=== PATIENT | male | born 1975 | race Caucasian/White ===

== ENCOUNTER → 2020-10-20 | Outpatient (CLI) | payer BC ==
[~2020-10-20] MED LIST: CELEBREX200 MG PO; CRESTOR5 MG PO; GLUCOPHAGE500 MG PO; IBUPROFEN800 MG PO; LISINOPRIL2.5 MG PO; TAMIFLU75 MG PO; TRULICITY1.5 MG/0.5 SQ; XIGDUO XR 10 M1 EACH PO; ZYVOX 600 MG T600 MG PO
== END ==
LOC: US 10:22
DX: N64.4 Mastodynia (principal)
CPT/HCPCS: 76641-RT; 77066

== ENCOUNTER → 2020-11-03 | Day surgery (SDC) | payer BC | END | disposition home or self-care (01) | LOC: OR 06:02 | PROVIDERS: Surgery | PROC: 0WUF0JZ Supplement Abdominal Wall with Synthetic Substitute, Open Approach (ICD-10-PCS; principal; 2020-11-03 07:30) | DX: K42.0 Umbilical hernia with obstruction, without gangrene (principal); K76.0 Fatty (change of) liver, not elsewhere classified; I10 Essential (primary) hypertension; E11.9 Type 2 diabetes mellitus without complications; E78.5 Hyperlipidemia, unspecified; M89.49 Other hypertrophic osteoarthropathy, multiple sites; E55.9 Vitamin D deficiency, unspecified; E53.8 Deficiency of other specified B group vitamins; E66.01 Morbid (severe) obesity due to excess calories; Z68.42 Body mass index [BMI] 45.0-49.9, adult; Z20.822 Contact with and (suspected) exposure to COVID-19; Z79.1 Long term (current) use of non-steroidal anti-inflammatories (NSAID); Z79.51 Long term (current) use of inhaled steroids; Z79.4 Long term (current) use of insulin; Z79.899 Other long term (current) drug therapy | CPT/HCPCS: 82962; C1781; J0690; J1100; J1170; J1885; J2001; J2250; J2405; J2704; J2710; J3010; J7120 ==

== ENCOUNTER 2021-08-10 11:37 | Emergency (ER) | payer BC ==
[2021-08-10 12:11] LABS: HEMOGLOBIN 17.8 gm/dl (14.0-17.5); RED BLOOD COUNT 5.63 M/UL (4.20-5.50); WHITE BLOOD COUNT 10.1 K/UL (4.5-11.0)
[2021-08-10 12:53] LABS: BUN/CREATININE RATIO 16 (0-10)
== END 2021-08-10 17:18 | disposition home or self-care (01) ==
LOC: ER1 11:37
PROVIDERS: Student in an Organized Health Care Education/Training Program
DX: R07.89 Other chest pain (principal); I10 Essential (primary) hypertension
CPT/HCPCS: 71045; 80053; 82550; 82553; 84484; 85025; 99285